=== PATIENT | female | born 1980 ===

== ENCOUNTER → 2017-01-11 | Outpatient (REF) | payer OTHER ==
[2017-01-11 14:39] LABS: BASOPHILS % (AUTO) 1 % (0-2); EOSINOPHILS # (AUTO) 1.1 10^3uL; EOSINOPHILS % (AUTO) 12 % (0-4); LYMPHOCYTES # (AUTO) 2.9 X10^3; MEAN CORPUSCULAR HEMOGLOBIN 31.1 PG (26.0-34.0); MEAN CORPUSCULAR VOLUME 86 FL (80-100); MEAN PLATELET VOLUME 10.2 FL (6.0-9.5); MONOCYTES # (AUTO) 0.7 X10^3; MONOCYTES % (AUTO) 7 % (3-11); NEUTROPHILS # (AUTO) 4.4 X10^3; NEUTROPHILS % (AUTO) 48 % (51-67); PLATELET COUNT 242 10^3uL (150-450); WHITE BLOOD COUNT 9.06 10^3uL (4.0-11.0)
[2017-01-11 14:41] LABS: MEAN CORPUSCULAR HGB CONC 36.2 g/dL (31.0-37.0)
[2017-01-11 14:44] LABS: ALBUMIN 4.6 g/dL (3.4-5.0); ANION GAP 18.1 MEQ/L (3-15); TOTAL PROTEIN 8.4 g/dL (6.4-8.5)
[2017-01-11 15:39] LABS: BILIRUBIN,URINE Negative (Negative); CLARITY,URINE Clear; COLOR,URINE Yellow; GLUCOSE, URINE (UA) Negative (Negative); LEUKOCYTE ESTERASE, URINE Negative (Negative); UROBILINOGEN,URINE 0.2 mg/dL (0.2-1.0)
[2017-01-11 15:51] LABS: URINE CENTRIFUGED VOLUME 10 mL
== END ==
LOC: LAB 14:29
PROVIDERS: ATTEND Nurse Practitioner Family
DX: R10.31 Right lower quadrant pain (principal)
CPT/HCPCS: 80053; 81003; 81015; 85025

== ENCOUNTER → 2017-02-22 | Outpatient (CLI) | payer OTHER | LOC: LAB 11:41 | PROVIDERS: ATTEND Surgery | DX: R10.9 Unspecified abdominal pain (principal); R11.2 Nausea with vomiting, unspecified; R19.7 Diarrhea, unspecified | CPT/HCPCS: 87338; 87507 ==

== ENCOUNTER → 2017-02-28 | Outpatient (CLI) | payer OTHER ==
--- NOTE | 2017-02-28 13:08 | Diagnostic Imaging Report ---
UGI W/ SMALL BOWEL FOLLOW THRU Technique: Double contrast upper GI examination was performed. This was followed by small bowel follow-through. A total of 3.4 minutes of fluoroscopy time was utilized for this procedure. Indication: Abdominal pain and nausea. Comparison: None available. Findings: Examination was initiated with the patient in the upright position. Effervescent crystals were administered by mouth. Thick barium contrast was then administered. Esophagus demonstrated normal primary and secondary peristalsis. No esophageal stricture, intraluminal mass or extrinsic mass effect. No evidence of esophageal ulcer. The patient was then placed in the prone ARROYO position and thin contrast was administered orally in multiple boluses. The esophagus again demonstrated normal peristalsis. Gastroesophageal junction was normal. No hiatal hernia. With provocative maneuvers, there was reflux of contrast material to the middle two thirds of the esophageal column. Double contrast evaluation of the stomach demonstrated to be well distended. No evidence of intraluminal mass. Gastric rugal folds appear normal. No large gastric ulcer was identified. Small bowel follow through was then performed. The small bowel loops are normal in caliber. The jejunal and ileal folds were normal. No bowel obstruction. Contrast reached the colon by two hours, which is normal. Spot imaging of the terminal ileum demonstrated it to be normal. Impression: 1. Gastroesophageal reflux to the middle one third of the esophageal column with provocative maneuvers. 2. No stricture or mass lesion in the esophagus. 3. Normal small bowel follow-through with a transit time of approximately two hours. Dictated by: Dictated on workstation # [id number]
== END ==
LOC: RAD 09:42
PROVIDERS: ATTEND Surgery
DX: R11.2 Nausea with vomiting, unspecified (principal); R19.7 Diarrhea, unspecified; R10.9 Unspecified abdominal pain
CPT/HCPCS: 74249

== ENCOUNTER 2017-03-09 10:01 | Day surgery (SDC) | payer OTHER ==
[~2017-03-09] VITALS: Ht 162.6 cm; Wt 97.0 kg
[~2017-03-09 10:01] MED LIST: AC500T PO; ALBU8.5H2 IH; DULO30CA PO; DULO60CA7 PO; ESTR1PAT91 TD; LACTATED RINGERS 1,000 ML IV SCH; LAMO200T14 PO; MONT10TA21 PO; ONDN4T PO; PANT20TA24 PO; RIVA20TA PO; SODIUM CHLORIDE FLUSH 3 ML SYR IV PRN
--- OUTSIDE RECORDS SUMMARY | 2017-03-09 10:05 | XMS REPORT | Continuity of Care Document ---
Author Author [facility] Organization [facility] Address Unknown Phone Unavailable Allergies Medications Problems Procedures Results Encounters ACCT No. Visit Date/Time Discharge Status Pt. Type Provider Facility Loc./Unit Complaint [id number] 10/23/2016 16:45:51 10/23/2016 23: 59:59 [facility] Outpatient Aylin Coppola [id number] 05/15/2016 17:44:26 05/15/2016 23: 59:59 [facility] Outpatient Aylin Coppola
[2017-03-09 10:14] VITALS: BP 133/77
[2017-03-09] MEDS ORDERED: SIMETHICONE 40 MG/0.6 ML (MYLICON DROPS) ORAL SYRINGE ONE (10:38)
[2017-03-09] MEDS ORDERED: LIDOCAINE 4% TOPICAL 4.5 ML SYR ONE (10:38)
[2017-03-09] MEDS ORDERED: PROPOFOL 20 ML IV ONE (11:36)
[2017-03-09] MEDS ORDERED: MIDAZOLAM 2 MG/2 ML (VERSED) VIAL ONE (11:36)
[2017-03-09] MEDS ORDERED: ALFENTANIL 500 MCG/ML (ALFENTA) 5 ML AMP IV ONE (11:36)
[2017-03-09 12:39] VITALS: BP 95/54
[2017-03-09 13:05] VITALS: BP 138/94
--- NOTE | 2017-03-09 13:36 | OPERATIVE REPORT ---
DATE OF OPERATION: 03/09/2017 PRE-OPERATIVE DIAGNOSIS: Abdominal pain nausea and vomiting. POST-OPERATIVE DIAGNOSIS: Normal upper and lower endoscopy. OPERATIVE PROCEDURE: 1. EGD with biopsies 2. Total colonoscopy with biopsies SURGEON: Kain Hollis MD ANESTHESIA: Monitored anesthesia care FINDINGS: 1. The esophagus, stomach and duodenum appeared normal with no inflammation, ulcers or neoplasia. Biopsies were obtained from the second portion of the duodenum and the antrum. 2. The bowel prep was excellent. 3. No neoplasia, inflammation, diverticula or angiodysplasia were seen in the colon or rectum. Biopsies were obtained from both of these areas. I did place an endoscopic clip over one of the biopsy sites in the transverse colon because it bled profusely for a short time and appeared to be forming a small hematoma. INDICATION: The patient is a 36-year-old seen for abdominal pain, nausea and vomiting with an extensive non-invasive workup showing no obvious abnormality. She presents for upper and lower endoscopy with plans for serial biopsies to continue the investigation. DESCRIPTION OF PROCEDURE: The patient was informed of the risks and benefits and agreed to proceed. Her oropharynx was anesthetized with lidocaine and a bite block was placed. Sedation was administered. The lighted endoscope was passed down the esophagus and into the stomach. Air was insufflated. The pylorus was cannulated and the first, second and third portions of the duodenum were visualized. No inflammation or ulcers were seen. Biopsies were obtained from the second portion to help rule out celiac disease. The scope was brought back into the stomach where the antrum, body, and fundus were carefully inspected. No inflammation or ulcers were seen. Biopsies were obtained of MICHAEL and histology from the antrum. Retroflexion revealed a normal gastric cardia. The diaphragmatic hiatus was seen at 38 cm with the squamocolumnar junction at the same level. This was intact without any obvious inflammatory changes. The distal and proximal esophagus appeared completely normal. The scope was removed completing this portion of the procedure. Attention was then turned to the colonoscopy. She was placed in the left lateral decubitus position. A digital rectal exam was performed, which was normal. The lighted endoscope was passed into the rectum and slowly advanced along the colon to the cecum. The ileocecal valve and the appendiceal orifice were easily seen. I attempted to intubate the terminal ileum but this was no successful. Biopsies were obtained on the way out from the cecum, ascending, transverse, descending, and sigmoid colon. No abnormalities were noted. An endoscopic clip was placed at one of the biopsy sites as described. The rectum appeared normal. Biopsies were obtained from there as well. The scope was removed completing the procedure. The patient tolerated the procedure without complications. Pathology is pending.
== END 2017-03-09 13:11 | disposition home or self-care (01) ==
LOC: ASC 10:01
PROVIDERS: ATTEND Surgery
DX: R10.84 Generalized abdominal pain (principal); R11.2 Nausea with vomiting, unspecified; R19.7 Diarrhea, unspecified; K21.9 Gastro-esophageal reflux disease without esophagitis; F31.9 Bipolar disorder, unspecified; F41.9 Anxiety disorder, unspecified; J45.909 Unspecified asthma, uncomplicated; Z79.01 Long term (current) use of anticoagulants; Z79.899 Other long term (current) drug therapy
CPT/HCPCS: 43239; 45380; 87077; J2250; J7120